=== PATIENT | male | born 1970 | race Caucasian/White ===

== ENCOUNTER 2018-02-03 07:42 | Outpatient (CLI) | payer OTHER, SELFPAY ==
[2018-02-03 09:11] LABS: Hemoglobin A1C 6.4 % (4.5-6.2)
[2018-02-03 09:18] LABS: LDL CHOLESTEROL 87 mg/dL (<100)
== END 2018-02-03 07:43 ==
PROVIDERS: PCP Family Medicine; Visit Provider Family Medicine
DX: I10 Essential (primary) hypertension (principal); E11.9 Type 2 diabetes mellitus without complications; M10.9 Gout, unspecified; R74.0 Nonspecific elevation of levels of transaminase and lactic acid dehydrogenase [LDH]; F43.21 Adjustment disorder with depressed mood; E66.9 Obesity, unspecified
CPT/HCPCS: 36415; 83721; 83036

== ENCOUNTER 2018-02-03 16:12 | Outpatient (REF) | payer OTHER, SELFPAY ==
[2018-02-03 17:24] LABS: Microalb ug/mg Crea 4.3 ug/mg Cr
== END 2018-02-03 16:13 ==
LOC: LBN 16:12
PROVIDERS: PCP Family Medicine; Visit Provider Family Medicine
DX: I10 Essential (primary) hypertension (principal); R74.0 Nonspecific elevation of levels of transaminase and lactic acid dehydrogenase [LDH]; E11.9 Type 2 diabetes mellitus without complications; E66.9 Obesity, unspecified; F43.21 Adjustment disorder with depressed mood
CPT/HCPCS: 82043; 82570

== ENCOUNTER 2021-03-08 03:41 | Outpatient (CLI) | payer OTHER, SELFPAY ==
[2021-03-08 10:30] LABS: Prothrombin Time 9.9 sec (9.3-11.0)
[2021-03-08 10:36] LABS: Abs Immature Grans 0.01 10^3/uL (0.0-0.06); Absolute Basophil Count 0.03 10^3/uL (0.0-0.2); Absolute Eosinophil Count 0.01 10^3/uL (0.0-0.7); Absolute Lymphocyte Count 1.96 10^3/uL (1.2-3.4); Absolute Neutrophil Count 2.64 10^3/uL (1.2-6.7); Basophils % 0.6; Eosinophils % 0.2; HCT 47.4 % (40.0-50.0); HGB 15.9 g/dL (13.5-17.5); Immature Grans % 0.2; Lymphocytes % 38.1; MCH 29.3 pg (27.0-33.0); MCHC 33.5 % (32.0-36.0); MCV 87.5 fL (80-95); MPV 9.9 fL (8.0-11.0); Monocytes % 9.7; Neutrophils % 51.2; Nucleated RBC 0 %; Platelet Count 163 10^3/uL (130-400); RBC 5.42 10^6/uL (4.36-5.78); RDW 12.5 % (11.8-14.1); RDW-SD 40.1 fL; WBC 5.15 10^3/uL (4.4-10.8)
[2021-03-08 10:52] LABS: ALT 62 U/L (16-63); AST 33 U/L (15-37); Albumin 4.1 g/dL (3.4-5.0); Alkaline Phosphatase 69 U/L (46-116); BUN 18 mg/dL (7-18); Bilirubin, Total 0.5 mg/dL (0.2-1.0); CREATININE 0.9 mg/dL (0.70-1.30); Calcium 9.3 mg/dL (8.5-10.1); Chloride 104 mmol/L (98-107); Glucose 106 mg/dL (74-106); Potassium 4.4 mmol/L (3.5-5.1); Sodium 141 mmol/L (136-145); Total Protein 7.5 g/dL (6.4-8.2)
[2021-03-10 11:06] LABS: AFP Tumor Marker <2.5 ng/mL (<8.1)
== END 2021-03-08 03:42 | disposition home or self-care (01) ==
PROVIDERS: PCP Family Medicine; Visit Provider Family Medicine
DX: K74.60 Unspecified cirrhosis of liver (principal)
CPT/HCPCS: 36415; 80053; 82105; 85025; 85610

== ENCOUNTER 2022-10-01 01:27 | Outpatient (CLI) | payer OTHER, SELFPAY ==
[2022-10-01 08:19] LABS: Hemoglobin A1C 6.1 % (<5.7)
[2022-10-01 08:46] LABS: COMMENT (LAB VIEW ONLY) 213.53 mg/dL; Microalb ug/mg Crea 4.4 ug/mg Cr
[2022-10-01 08:48] LABS: Calculated LDL 71 mg/dL (<100); Cholesterol 142 mg/dL (<200); HDL Cholesterol 45 mg/dL (40-60); Triglyceride 134 mg/dL (<150)
== END 2022-10-01 01:28 | disposition home or self-care (01) ==
LOC: LBO 01:29
PROVIDERS: PCP Family Medicine; Visit Provider Family Medicine
DX: E11.9 Type 2 diabetes mellitus without complications (principal)
CPT/HCPCS: 36415; 80061; 82043; 82570; 83036

== ENCOUNTER 2023-02-26 03:27 | Outpatient (CLI) | payer BC, SELFPAY ==
[2023-02-26 12:27] LABS: Abs Immature Grans 0.02 10^3/uL (0.0-0.06); Absolute Basophil Count 0.02 10^3/uL (0.0-0.2); Absolute Eosinophil Count 0.09 10^3/uL (0.0-0.7); Absolute Lymphocyte Count 1.81 10^3/uL (1.2-3.4); Absolute Monocyte Count 0.35 10^3/uL (0.1-0.8); Absolute Neutrophil Count 3.47 10^3/uL (1.2-6.7); Basophils % 0.3; Eosinophils % 1.6; HCT 48.9 % (40.0-50.0); HGB 16.7 g/dL (13.5-17.5); Immature Grans % 0.3; Lymphocytes % 31.4; MCH 29.9 pg (27.0-33.0); MCHC 34.2 % (32.0-36.0); MCV 88 fL (80-95); MPV 9.5 fL (8.0-11.0); Monocytes % 6.1; Neutrophils % 60.3; Platelet Count 167 10^3/uL (130-400); RBC 5.59 10^6/uL (4.36-5.78); RDW 12.1 % (11.8-14.1); RDW-SD 38.9 fL; WBC 5.76 10^3/uL (4.4-10.8)
[2023-02-26 12:37] LABS: Prothrombin Time 9.9 sec (9.3-11.0)
[2023-02-26 13:10] LABS: Hemoglobin A1C 5.7 % (<5.7)
[2023-02-26 13:12] LABS: COMMENT (LAB VIEW ONLY) 178.78 mg/dL; Microalb ug/mg Crea 4.5 ug/mg Cr
[2023-02-26 13:13] LABS: ALT 43 U/L (16-63); AST 28 U/L (15-37); Albumin 3.7 g/dL (3.4-5.0); Alkaline Phosphatase 58 U/L (46-116); Anion Gap 8.5 mmol/L (3-11); BUN 15 mg/dL (7-18); Bilirubin, Total 0.9 mg/dL (0.2-1.0); CO2 26.5 mmol/L (21.0-32.0); CREATININE 0.9 mg/dL (0.70-1.30); Calcium 9.8 mg/dL (8.5-10.1); Chloride 105 mmol/L (98-107); Estimated GFR 102.12 (mL/min/1.73m2); Glucose 107 mg/dL (74-106); Potassium 3.6 mmol/L (3.5-5.1); Sodium 140 mmol/L (136-145); Total Protein 7.2 g/dL (6.4-8.2)
[2023-03-01 08:31] LABS: AFP Tumor Marker 2.6 ng/mL (<8.1)
== END 2023-02-26 03:28 | disposition home or self-care (01) ==
LOC: LOS 03:29
PROVIDERS: PCP Family Medicine; Visit Provider Family Medicine
DX: I10 Essential (primary) hypertension (principal); E78.5 Hyperlipidemia, unspecified; K74.60 Unspecified cirrhosis of liver; E11.9 Type 2 diabetes mellitus without complications; G25.0 Essential tremor; E66.9 Obesity, unspecified
CPT/HCPCS: 36415; 80053; 82043; 82105; 82570; 83036; 85025; 85610